=== PATIENT | male | born 1960 | race Caucasian/White ===

== ENCOUNTER 2017-10-20 09:46 | Emergency (ER) | END 2017-10-20 13:50 | disposition home or self-care (01) ==

== ENCOUNTER 2017-10-22 10:59 | Emergency (ER) | END 2017-10-22 11:32 | disposition home or self-care (01) ==

== ENCOUNTER 2017-10-29 09:17 | Emergency (ER) | END 2017-10-29 10:39 | disposition home or self-care (01) ==

== ENCOUNTER 2017-11-01 16:54 | Emergency (ER) | END 2017-11-01 18:16 | disposition home or self-care (01) ==